=== PATIENT | male | born 1950 | race Caucasian/White ===

== ENCOUNTER 2022-04-27 13:52 | Outpatient (CLI) | payer MEDICARE, SELFPAY ==
--- NOTE | ~2022-04-27 | CT_ITS ---
EXAMINATION: CT cervical spine wo con DATE: 04/27/2022 14:13 INDICATION: Neck pain. TECHNIQUE: Computed tomography (CT) of the cervical spine was performed without intravenous contrast. Automated exposure control and iterative reconstruction technique were employed. The dose-length pro duct was 425.65 mGy-cm. COMPARISON: None FINDINGS: There is 2 mm retrolisthesis of C6 on C7. Vertebral body heights are normal. There is sever garry decreased disc height from C2-C3 through C6-C7. There is interbody fusion at C3-C4 and C4-C5. 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 There are bridgin g endplate osteophytes and ankylosis of the facet joints from C7 to at least T4. The following disc l evels are specifically discussed: C2-C3: There is moderate bilateral uncovertebral joint osteoarthritis. There is severe bilateral face t joint osteoarthritis. There is mild bilateral neural foraminal stenosis. There is mild central navi l stenosis. C3-C4: There is mild bilateral uncovertebral joint hypertrophy. There is ankylosis of the facet joint s with mild hypertrophy. There is no neural foraminal stenosis. There is mild central canal stenosis. C4-C5: There is mild bilateral uncovertebral joint hypertrophy. There is mild left facet joint osteoa rthritis. There is ankylosis of right facet joint. There is no neural foraminal stenosis. There is mi ld central canal stenosis. C5-C6: There is severe bilateral uncovertebral joint osteoarthritis. There is severe bilateral facet joint osteoarthritis. There is moderate bilateral neural foraminal stenosis. There is mild central ca nal stenosis. C6-C7: There is severe bilateral uncovertebral joint osteoarthritis. There is severe bilateral facet joint osteoarthritis. There is moderate bilateral neural foraminal stenosis. There is mild central ca nal stenosis. C7-T1: There is no uncovertebral joint hypertrophy. There is ankylosis of the facet joints with mild hypertrophy. There is mild bilateral neural foraminal stenosis. There is no central canal stenosis. IMPRESSION: 1. Severe cervical spondylosis. 2. Bridging endplate osteophytes and facet joint ankylosis from C3 to C5 and from C7 to at least T4. Reviewed, dictated and finalized at location A. IMPRESSION: 1. Severe cervical spondylosis. 2. Bridging endplate osteophytes and facet joint ankylosis from C3 to C5 and fr om C7 to at least T4.
== END 2022-04-27 13:53 | disposition home or self-care (01) ==
PROVIDERS: Visit Provider Neurological Surgery
DX: M47.813 Spondylosis without myelopathy or radiculopathy, cervicothoracic region (principal); M48.03 Spinal stenosis, cervicothoracic region; M47.812 Spondylosis without myelopathy or radiculopathy, cervical region; M24.69 Ankylosis, other specified joint
CPT/HCPCS: 72125

== ENCOUNTER 2022-06-14 10:52 | Outpatient (CLI) | payer MEDICARE, SELFPAY ==
--- NOTE | ~2022-06-14 | XR_ITS ---
EXAMINATION: XR barium swallow DATE: 06/14/2022 11:28 INDICATION: Dysphagia, unspecified. TECHNIQUE: The patient drank thick barium, gas-producing crystals, and thin barium. Fluoroscopy of th e hypopharynx and esophagus was performed. Fluoroscopy exposure time was 0.4 minutes. The total numbe r of images was 620. The dose-area product was 2.299 Gy-cm^2. COMPARISON: CT cervical spine 04/27/2022 FINDINGS: There is no mass or stricture of the esophagus. There is severe cervical spondylosis with i ndentation of the esophagus at C6-C7. A barium pill passes this area without difficulty. Esophageal m otility is normal. There is no hiatal hernia. IMPRESSION: 1. Indentation of the esophagus at C6-C7 secondary to severe cervical spondylosis. This finding is of questionable clinical significance. Reviewed, dictated and finalized at location A. IMPRESSION: 1. Indentation of the esophagus at C6-C7 secondary to severe cervical spondylos is. This finding is of questionable clinical significance.
== END 2022-06-14 10:53 | disposition home or self-care (01) ==
LOC: ANHIMG 10:54
PROVIDERS: Visit Provider Neurological Surgery
DX: R13.10 Dysphagia, unspecified (principal); M47.812 Spondylosis without myelopathy or radiculopathy, cervical region
CPT/HCPCS: 74220